=== PATIENT | female | born 1970 | race Caucasian/White ===

== ENCOUNTER 2018-01-28 17:39 | Emergency (ER) | payer BC ==
[2018-01-28] MEDS ORDERED: Ondansetron 4 MG/2 ML SDV IVPUSH ONE (19:23)
[2018-01-28] MEDS ORDERED: Sodium Chloride 0.9% 1,000 ML IV ONE (19:23)
[2018-01-28] MEDS ORDERED: Insulin Regular, Human 100 Units/ML 3 ML Vial SUBCUT STA ×2 (20:07→21:25)
--- NOTE | 2018-01-28 20:09 | EDM.PDOC ---
ED HPI GENERAL MEDICAL PROBLEM - General Chief Complaint: Abdominal Pain Stated Complaint: [facility] Time Seen by Provider: 01/28/18 18:24 Source of Information: Reports: Patient, Family (, 2 kids) History Limitations: Reports: No Limitations - History of Present Illness INITIAL COMMENTS - FREE TEXT/NARRATIVE: The patient states that she developed sudden onset lower abdominal cramping, nausea, and vomiting around 15:00, just after eating a sandwich. No diarrhea. No recent fever. No urinary symptoms. No recent cough. No recent chest pain, palpitations, or dyspnea. No prior similar symptoms. The patient denies eating any spoiled food recently. No similarly ill contacts. No recent travel. No recent antibiotics. The patient states that she started a new job today, and was not able to eat for most of the day. The patient also admits that she has not eaten well over the past several days. The patient states that she has a history of diabetes, however, due to lack of insurance, she has not seen a physician about her diabetes since 2017. She states that she ordinarily checks her blood sugars 3-4 times a day, but it sounds like that has not been the case recently. She states that her blood sugars have been 300-400 ever since June 2017. She states that she ordinarily takes Levemir and metformin for her diabetes, but it also sounds like she has been taking these only if her blood sugars are especially high, in an effort to make them last. The patient does not have a PCP. 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: Neurological History: Reports: Other (See Below) (Nelson palsy 2016) Psychiatric History: Reports: Anxiety Endocrine/Metabolic History: Reports: Diabetes, Type II, Obesity/BMI 30+ - Past Surgical History HEENT Surgical History: Reports: Oral Surgery (Cleft lip repair) GI Surgical History: Reports: Cholecystectomy (1994) Social & Family History - Tobacco Use Smoking Status *Q: Never Smoker - Caffeine Use Caffeine Use: Reports: None - Alcohol Use Alcohol Use History: No - Recreational Drug Use Recreational Drug Use: No - Living Situation & Occupation Living situation: Reports: , with Spouse, with Family (2 kids) Occupation: Employed ([email or web address]) ED ROS GENERAL - Review of Systems Review Of Systems: ROS reveals no pertinent complaints other than HPI. ED EXAM, GI/ABD - Physical Exam Exam: See Below Exam Limited By: No Limitations General Appearance: Alert, WD/WN, No Apparent Distress, Anxious Eyes: Bilateral: Normal Appearance, EOMI Ears: Normal External Exam, Hearing Grossly Normal Nose: Normal Inspection, No Blood Throat/Mouth: Normal Inspection, Normal Lips, Normal Voice, No Airway Compromise Head: Atraumatic, Normocephalic Neck: Normal Inspection, Full Range of Motion Respiratory/Chest: No Respiratory Distress, Lungs Clear, Normal Breath Sounds, No Accessory Muscle Use Cardiovascular: Normal Peripheral Pulses, Regular Rate, Rhythm, No Edema, No Gallop, No JVD, No Murmur, No Rub GI/Abdominal Exam: Normal Bowel Sounds, Soft, No Organomegaly, No Distention, No Abnormal Bruit, No Mass, Tender (Suprapubically only. Nontender elsewhere.), Other (Obese) (Female) Exam: Deferred Rectal (Female) Exam: Deferred Back Exam: Normal Inspection, Full Range of Motion. No: CVA Tenderness (L), CVA Tenderness (R) Extremities: Normal Inspection, Normal Range of Motion, No Pedal Edema, Normal Capillary Refill Neurological: Alert, Oriented, Normal Cognition, No Motor/Sensory Deficits Psychiatric: Normal Affect Skin Exam: Warm, Dry, Intact, Normal Color, No Rash Course - Vital Signs Last Recorded V/S: Last Vital Signs Temp 37.3 C 01/28/18 17:48 Pulse 99 01/28/18 17:48 Resp 16 01/28/18 17:48 BP 130/88 01/28/18 17:48 Pulse Ox 93 L 01/28/18 17:48 Orthostatic Blood Pressure [ 131/88 Standing] Orthostatic Blood Pressure [ 131/83 Sitting] Orthostatic Blood Pressure [ 108/73 Supine] - Orders/Labs/Meds Orders: Active Orders 24 hr Category Date Time Status Accu Check [Blood Glucose Check, Bedside] [RC] ONETIME Care 01/28/18 19:19 Active Accu Check [Blood Glucose Check, Bedside] [RC] ONETIME Care 01/28/18 21:20 Active Blood Glucose Check, Bedside [RC] QIDACANDBED Care 01/29/18 00:10 Active Height and Weight [RC] DAILY Care 01/28/18 23:52 Active Intake and Output [RC] QSHIFT Care 01/28/18 23:52 Active Orthostatic Vital Signs [RC] STAT Care 01/28/18 19:18 Active Oxygen Therapy [RC] PRN Care 01/28/18 23:52 Active RT Aerosol Therapy [RC] ASDIRECTED Care 01/28/18 23:54 Active Up With Assistance [RC] ASDIRECTED Care 01/28/18 23:52 Active Up ad Soumya [RC] ASDIRECTED Care 01/28/18 23:52 Active VTE/DVT Education [RC] PER UNIT ROUTINE Care 01/28/18 23:52 Active Vital Signs [RC] Q4H Care 01/28/18 23:52 Active Consult to Case Management [CONS] Routine Cons 01/28/18 23:52 Active Consult to Diabetic Nurse Specialist [CONS] Routine Cons 01/28/18 23:52 Active Consult to Furniture Inspector [CONS] Routine Cons 01/28/18 23:52 Active Consult to Diesel Pile Hammer Operator [CONS] Routine Cons 01/28/18 23:52 Active Consistent Carbohydrate Diet [DIET] Diet 01/28/18 Dinner Active BASIC METABOLIC PANEL,BMP [CHEM] AM Lab 01/29/18 05:11 Ordered BASIC METABOLIC PANEL,BMP [CHEM] AM Lab 01/30/18 05:11 Ordered C-REACTIVE PROTEIN [CHEM] Stat Lab 01/28/18 19:40 Results CBC WITH AUTO DIFF [HEME] AM Lab 01/29/18 05:11 Ordered CBC WITH AUTO DIFF [HEME] AM Lab 01/30/18 05:11 Ordered LIPID PANEL [CHEM] AM Lab 01/29/18 05:11 Ordered MAGNESIUM [CHEM] AM Lab 01/29/18 05:11 Ordered MAGNESIUM [CHEM] AM Lab 01/30/18 05:11 Ordered MAGNESIUM [CHEM] AM Lab 01/31/18 05:11 Ordered MICROALBUMIN,URINE RANDOM [URCHEM] Stat Lab 01/28/18 21:15 Ordered OSMOLALITY,SERUM [CHEM] Stat Lab 01/28/18 19:40 Results UA W/MICROSCOPIC [URIN] Stat Lab 01/28/18 21:15 Ordered Acetaminophen [Tylenol] Med 01/28/18 23:52 Active 650 mg PO Q4H PRN Acetaminophen/HYDROcodone [[place] 325-5 MG] Med 01/28/18 23:52 Active 1 tab PO Q4H PRN Albuterol/Ipratropium [DuoNeb 3.0-0.5 MG/3 ML] Med 01/28/18 23:52 Active 3 ml NEB Q4H PRN Bisacodyl [Dulcolax] Med 01/28/18 23:52 Active 5 mg PO DAILY PRN Dextrose 50% in Water Med 01/29/18 00:10 Active 50 ml IVPUSH ASDIRECTED PRN Docusate Sodium [Colace] Med 01/28/18 23:52 Active 100 mg PO BID PRN Docusate Sodium/Sennosides [Senna Plus] Med 01/28/18 23:52 Active 1 tab PO BID PRN HYDROmorphone [Dilaudid] Med 01/28/18 23:52 Active 0.25 mg IVPUSH Q2H PRN Insulin Aspart [NovoLOG] Med 01/29/18 07:00 Active See Protocol SUBCUT QIDACANDBED Insulin Detemir [Levemir] Med 01/29/18 09:00 Active 40 unit SUBCUT DAILY LORazepam [Ativan] Med 01/28/18 23:52 Active 1 mg IV Q6H PRN LORazepam [Ativan] Med 01/28/18 23:52 Active 2 mg IVPUSH Q4H PRN Magnesium Hydroxide [Milk of Magnesia] Med 01/28/18 23:52 Active 30 ml PO Q12H PRN Magnesium Rep Pharmacy to Dose [Pharmacy to Dose - Med 01/28/18 23:45 Pending Magnesium Replacement] 1 dose .XX ASDIRECTED Metoprolol Tartrate [Lopressor] Med 01/28/18 23:52 Active 5 mg IVPUSH Q4H PRN Ondansetron [Zofran] Med 01/28/18 23:52 Active 4 mg IV Q4H PRN Polyethylene Glycol 3350 [MiraLAX] Med 01/28/18 23:52 Active 17 gm PO DAILY PRN Potassium Chloride [Klor-Con M20] Med 01/29/18 00:30 Active 40 meq PO Q4H Potassium Rep Pharmacy to Dose [Pharmacy to Dose - Med 01/28/18 23:45 Pending Potassium Replacement] 1 dose .XX ASDIRECTED Promethazine [Phenergan] 12.5 mg Med 01/28/18 23:52 Active Sodium Chloride 0.9% [Normal Saline] 50 ml IV Q6H Remove Patch Med 02/01/18 00:00 Active 1 ea TRDERM Q72H Scopolamine [Transderm-Scop] Med 01/28/18 23:58 Active 1.5 mg TRDERM Q72H PRN Sodium Chloride 0.9% [Normal Saline] 1,000 ml Med 01/28/18 21:30 Active IV ASDIRECTED Temazepam [Restoril] Med 01/28/18 23:52 Active 15 mg PO BEDTIME PRN hydrALAZINE [Apresoline] Med 01/28/18 23:52 Active 20 mg IVPUSH Q4H PRN Resuscitation Status Routine Resus Stat 01/28/18 23:52 Ordered Medication Orders Acetaminophen (Tylenol) 650 mg PO Q4H PRN PRN Reason: Pain (Mild 1-3)/fever Hydrocodone Bitart/Acetaminophen ([place] 325-5 Mg) 1 tab PO Q4H PRN PRN Reason: Pain (moderate 4-6) Albuterol/Ipratropium (Duoneb 3.0-0.5 Mg/3 Ml) 3 ml NEB Q4H PRN PRN Reason: Shortness Of Breath/wheezing Bisacodyl (Dulcolax) 5 mg PO DAILY PRN PRN Reason: Constipation Dextrose/Water (Dextrose 50% In Water) 50 ml IVPUSH ASDIRECTED PRN PRN Reason: Hypoglycemia Docusate Sodium (Colace) 100 mg PO BID PRN PRN Reason: Constipation Hydralazine HCl (Apresoline) 20 mg IVPUSH Q4H PRN PRN Reason: Hypertension Hydromorphone HCl (Dilaudid) 0.25 mg IVPUSH Q2H PRN PRN Reason: Pain (severe 7-10) Sodium Chloride (Normal Saline) 1,000 mls @ 150 mls/hr IV ASDIRECTED [facility] Last Admin: 01/28/18 21:31 Dose: 150 mls/hr Promethazine HCl 12.5 mg/ (Sodium Chloride) 50.5 mls @ 100 mls/hr IV Q6H PRN PRN Reason: Nausea/Vomiting Insulin Aspart (Novolog) 0 unit SUBCUT QIDACANDBED [facility]; Protocol Insulin Detemir (Levemir) 40 unit SUBCUT DAILY [facility] Lorazepam (Ativan) 2 mg IVPUSH Q4H PRN PRN Reason: Seizures Lorazepam (Ativan) 1 mg IV Q6H PRN PRN Reason: Anxiety Magnesium Hydroxide (Milk Of Magnesia) 30 ml PO Q12H PRN PRN Reason: Constipation Magnesium Sulfate (Pharmacy To Dose - Magnesium Replacement) 1 dose .XX ASDIRECTED [facility] Metoprolol Tartrate (Lopressor) 5 mg IVPUSH Q4H PRN PRN Reason: Tachycardia Miscellaneous Information (Remove Patch) 1 ea TRDERM Q72H [facility] Ondansetron HCl (Zofran) 4 mg IV Q4H PRN PRN Reason: Nausea/Vomiting Polyethylene Glycol (Miralax) 17 gm PO DAILY PRN PRN Reason: Constipation Potassium Chloride (Pharmacy To Dose - Potassium Replacement) 1 dose .XX ASDIRECTED [facility] Potassium Chloride (Klor-Con M20) 40 meq PO Q4H [facility] Stop: 01/29/18 04:31 Scopolamine (Transderm-Scop) 1.5 mg TRDERM Q72H PRN PRN Reason: Nausea/Vomiting Senna/Docusate Sodium (Senna Plus) 1 tab PO BID PRN PRN Reason: Constipation Temazepam (Restoril) 15 mg PO BEDTIME PRN PRN Reason: Sleep Labs: Laboratory Tests 01/28/18 01/28/18 01/28/18 Range/Units 19:39 19:40 19:40 WBC 11.61 H (3.98-10.04) K/mm3 RBC 6.09 H (3.98-5.22) M/mm3 Hgb 13.5 (11.2-15.7) gm/L Hct 41.1 (34.1-44.9) % MCV 67.5 L (79.4-94.8) fl MCH 22.2 L (25.6-32.2) pg MCHC 32.8 (32.2-35.5) g/dl RDW Std Deviation 41.8 (36.4-46.3) fL Plt Count 262 (182-369) K/mm3 MPV 10.8 (9.4-12.3) fl Neutrophils % (Manual) 87 H (40-60) % Band Neutrophils % 0 (0-10) % Lymphocytes % (Manual) 12 L (20-40) % Atypical Lymphs % 0 % Monocytes % (Manual) 1 L (2-10) % Eosinophils % (Manual) 0 L (0.7-5.8) % Basophils % (Manual) 0 L (0.1-1.2) Toxic Granulation 2+ moderate Platelet Estimate Adequate Plt Morphology Comment Normal Anisocytosis 2+ moderate Microcytosis 2+ moderate RBC Morph Comment Not Reportable Puncture Site ABG pH (7.35-7.45) ABG pCO2 (35.0-45.0) mmHg ABG pO2 (80.0-100.0) mmHg ABG HCO3 (22.0-26.0) meq/L ABG O2 Saturation (96.0-97.0) % ABG Base Excess (-2-2.0) Fritz Test O2 Delivery Device Oxygen Flow Rate FiO2 (21.00-100.00) % Sodium 138 (136-145) mEq/L Potassium 3.7 (3.5-5.1) mEq/L Chloride 102 (98-107) mEq/L Carbon Dioxide 21 (21-32) mEq/L Anion Gap 18.7 H (5-15) BUN 14 (7-18) mg/dL Creatinine 0.8 (0.55-1.02) mg/dL Est Cr Clr Drug Dosing 79.07 mL/min Estimated GFR (MDRD) > 60 (>60) mL/min BUN/Creatinine Ratio 17.5 (14-18) Glucose 343 H (74-106) mg/dL POC Glucose 297 H (70-105) mg/dL Hemoglobin A1c (4.50-6.20) % Lactic Acid (0.4-2.0) mmol/L Calcium 8.4 L (8.5-10.1) mg/dL Magnesium 1.6 L (1.8-2.4) mg/dl Total Bilirubin 0.6 (0.2-1.0) mg/dL AST 17 (15-37) U/L ALT 33 (14-59) U/L Alkaline Phosphatase 57 (46-116) U/L C-Reactive Protein (<1.0) mg/dL Total Protein 7.3 (6.4-8.2) g/dl Albumin 3.7 (3.4-5.0) g/dl Globulin 3.6 gm/dL Albumin/Globulin Ratio 1.0 (1-2) Lipase 179 (73-393) U/L HCG, Qual (NEGATIVE) Urine Color (Yellow) Urine Appearance (Clear) Urine pH (5.0-8.0) Ur Specific [place] (1.005-1.030) Urine Protein (Negative) Urine Glucose (UA) (Negative) Urine Ketones (Negative) Urine Occult Blood (Negative) Urine Nitrite (Negative) Urine Bilirubin (Negative) Urine Urobilinogen (0.2-1.0) Ur Leukocyte Esterase (Negative) Urine RBC (0-5) /hpf Urine WBC (0-5) /hpf Ur Epithelial Cells (0-5) /hpf Urine Bacteria (FEW) /hpf Urine Mucus (FEW) /hpf Ur Random Microalbumin (1.3-20.0) mg/L Urine HCG, Qual (NEGATIVE) Ketones (0.0-0.3) mM 01/28/18 01/28/18 01/28/18 Range/Units 19:40 19:40 19:40 WBC (3.98-10.04) K/mm3 RBC (3.98-5.22) M/mm3 Hgb (11.2-15.7) gm/L Hct (34.1-44.9) % MCV (79.4-94.8) fl MCH (25.6-32.2) pg MCHC (32.2-35.5) g/dl RDW Std Deviation (36.4-46.3) fL Plt Count (182-369) K/mm3 MPV (9.4-12.3) fl Neutrophils % (Manual) (40-60) % Band Neutrophils % (0-10) % Lymphocytes % (Manual) (20-40) % Atypical Lymphs % % Monocytes % (Manual) (2-10) % Eosinophils % (Manual) (0.7-5.8) % Basophils % (Manual) (0.1-1.2) Toxic Granulation Platelet Estimate Plt Morphology Comment Anisocytosis Microcytosis RBC Morph Comment Puncture Site ABG pH (7.35-7.45) ABG pCO2 (35.0-45.0) mmHg ABG pO2 (80.0-100.0) mmHg ABG HCO3 (22.0-26.0) meq/L ABG O2 Saturation (96.0-97.0) % ABG Base Excess (-2-2.0) Fritz Test O2 Delivery Device Oxygen Flow Rate FiO2 (21.00-100.00) % Sodium (136-145) mEq/L Potassium (3.5-5.1) mEq/L Chloride (98-107) mEq/L Carbon Dioxide (21-32) mEq/L Anion Gap (5-15) BUN (7-18) mg/dL Creatinine (0.55-1.02) mg/dL Est Cr Clr Drug Dosing mL/min Estimated GFR (MDRD) (>60) mL/min BUN/Creatinine Ratio (14-18) Glucose (74-106) mg/dL POC Glucose (70-105) mg/dL Hemoglobin A1c 11.60 H (4.50-6.20) % Lactic Acid 1.3 (0.4-2.0) mmol/L Calcium (8.5-10.1) mg/dL Magnesium (1.8-2.4) mg/dl Total Bilirubin (0.2-1.0) mg/dL AST (15-37) U/L ALT (14-59) U/L Alkaline Phosphatase (46-116) U/L C-Reactive Protein (<1.0) mg/dL Total Protein (6.4-8.2) g/dl Albumin (3.4-5.0) g/dl Globulin gm/dL Albumin/Globulin Ratio (1-2) Lipase (73-393) U/L HCG, Qual (NEGATIVE) Urine Color (Yellow) Urine Appearance (Clear) Urine pH (5.0-8.0) Ur Specific [place] (1.005-1.030) Urine Protein (Negative) Urine Glucose (UA) (Negative) Urine Ketones (Negative) Urine Occult Blood (Negative) Urine Nitrite (Negative) Urine Bilirubin (Negative) Urine Urobilinogen (0.2-1.0) Ur Leukocyte Esterase (Negative) Urine RBC (0-5) /hpf Urine WBC (0-5) /hpf Ur Epithelial Cells (0-5) /hpf Urine Bacteria (FEW) /hpf Urine Mucus (FEW) /hpf Ur Random Microalbumin (1.3-20.0) mg/L Urine HCG, Qual (NEGATIVE) Ketones 4.51 (0.0-0.3) mM 01/28/18 01/28/18 01/28/18 Range/Units 19:40 19:40 20:00 WBC (3.98-10.04) K/mm3 RBC (3.98-5.22) M/mm3 Hgb (11.2-15.7) gm/L Hct (34.1-44.9) % MCV (79.4-94.8) fl MCH (25.6-32.2) pg MCHC (32.2-35.5) g/dl RDW Std Deviation (36.4-46.3) fL Plt Count (182-369) K/mm3 MPV (9.4-12.3) fl Neutrophils % (Manual) (40-60) % Band Neutrophils % (0-10) % Lymphocytes % (Manual) (20-40) % Atypical Lymphs % % Monocytes % (Manual) (2-10) % Eosinophils % (Manual) (0.7-5.8) % Basophils % (Manual) (0.1-1.2) Toxic Granulation Platelet Estimate Plt Morphology Comment Anisocytosis Microcytosis RBC Morph Comment Puncture Site Rt radial ABG pH 7.35 (7.35-7.45) ABG pCO2 35.3 (35.0-45.0) mmHg ABG pO2 94.0 (80.0-100.0) mmHg ABG HCO3 18.8 L (22.0-26.0) meq/L ABG O2 Saturation 96.9 (96.0-97.0) % ABG Base Excess -5.7 L (-2-2.0) Fritz Test Positive O2 Delivery Device Room air Oxygen Flow Rate 0.0 FiO2 21.00 (21.00-100.00) % Sodium (136-145) mEq/L Potassium (3.5-5.1) mEq/L Chloride (98-107) mEq/L Carbon Dioxide (21-32) mEq/L Anion Gap (5-15) BUN (7-18) mg/dL Creatinine (0.55-1.02) mg/dL Est Cr Clr Drug Dosing mL/min Estimated GFR (MDRD) (>60) mL/min BUN/Creatinine Ratio (14-18) Glucose (74-106) mg/dL POC Glucose (70-105) mg/dL Hemoglobin A1c (4.50-6.20) % Lactic Acid (0.4-2.0) mmol/L Calcium (8.5-10.1) mg/dL Magnesium (1.8-2.4) mg/dl Total Bilirubin (0.2-1.0) mg/dL AST (15-37) U/L ALT (14-59) U/L Alkaline Phosphatase (46-116) U/L C-Reactive Protein 0.8 (<1.0) mg/dL Total Protein (6.4-8.2) g/dl Albumin (3.4-5.0) g/dl Globulin gm/dL Albumin/Globulin Ratio (1-2) Lipase (73-393) U/L HCG, Qual Negative (NEGATIVE) Urine Color (Yellow) Urine Appearance (Clear) Urine pH (5.0-8.0) Ur Specific [place] (1.005-1.030) Urine Protein (Negative) Urine Glucose (UA) (Negative) Urine Ketones (Negative) Urine Occult Blood (Negative) Urine Nitrite (Negative) Urine Bilirubin (Negative) Urine Urobilinogen (0.2-1.0) Ur Leukocyte Esterase (Negative) Urine RBC (0-5) /hpf Urine WBC (0-5) /hpf Ur Epithelial Cells (0-5) /hpf Urine Bacteria (FEW) /hpf Urine Mucus (FEW) /hpf Ur Random Microalbumin (1.3-20.0) mg/L Urine HCG, Qual (NEGATIVE) Ketones (0.0-0.3) mM 01/28/18 01/28/18 01/28/18 Range/Units 21:15 21:15 21:15 WBC (3.98-10.04) K/mm3 RBC (3.98-5.22) M/mm3 Hgb (11.2-15.7) gm/L Hct (34.1-44.9) % MCV (79.4-94.8) fl MCH (25.6-32.2) pg MCHC (32.2-35.5) g/dl RDW Std Deviation (36.4-46.3) fL Plt Count (182-369) K/mm3 MPV (9.4-12.3) fl Neutrophils % (Manual) (40-60) % Band Neutrophils % (0-10) % Lymphocytes % (Manual) (20-40) % Atypical Lymphs % % Monocytes % (Manual) (2-10) % Eosinophils % (Manual) (0.7-5.8) % Basophils % (Manual) (0.1-1.2) Toxic Granulation Platelet Estimate Plt Morphology Comment Anisocytosis Microcytosis RBC Morph Comment Puncture Site ABG pH (7.35-7.45) ABG pCO2 (35.0-45.0) mmHg ABG pO2 (80.0-100.0) mmHg ABG HCO3 (22.0-26.0) meq/L ABG O2 Saturation (96.0-97.0) % ABG Base Excess (-2-2.0) Fritz Test O2 Delivery Device Oxygen Flow Rate FiO2 (21.00-100.00) % Sodium (136-145) mEq/L Potassium (3.5-5.1) mEq/L Chloride (98-107) mEq/L Carbon Dioxide (21-32) mEq/L Anion Gap (5-15) BUN (7-18) mg/dL Creatinine (0.55-1.02) mg/dL Est Cr Clr Drug Dosing mL/min Estimated GFR (MDRD) (>60) mL/min BUN/Creatinine Ratio (14-18) Glucose (74-106) mg/dL POC Glucose (70-105) mg/dL Hemoglobin A1c (4.50-6.20) % Lactic Acid (0.4-2.0) mmol/L Calcium (8.5-10.1) mg/dL Magnesium (1.8-2.4) mg/dl Total Bilirubin (0.2-1.0) mg/dL AST (15-37) U/L ALT (14-59) U/L Alkaline Phosphatase (46-116) U/L C-Reactive Protein (<1.0) mg/dL Total Protein (6.4-8.2) g/dl Albumin (3.4-5.0) g/dl Globulin gm/dL Albumin/Globulin Ratio (1-2) Lipase (73-393) U/L HCG, Qual (NEGATIVE) Urine Color Yellow (Yellow) Urine Appearance Clear (Clear) Urine pH 5.5 (5.0-8.0) Ur Specific [place] 1.025 (1.005-1.030) Urine Protein Negative (Negative) Urine Glucose (UA) 2+ H (Negative) Urine Ketones 4+ H (Negative) Urine Occult Blood Negative (Negative) Urine Nitrite Negative (Negative) Urine Bilirubin Negative (Negative) Urine Urobilinogen 0.2 (0.2-1.0) Ur Leukocyte Esterase Negative (Negative) Urine RBC Not seen (0-5) /hpf Urine WBC 0-5 (0-5) /hpf Ur Epithelial Cells Not seen (0-5) /hpf Urine Bacteria Not seen (FEW) /hpf Urine Mucus Not seen (FEW) /hpf Ur Random Microalbumin 11.3 (1.3-20.0) mg/L Urine HCG, Qual Negative (NEGATIVE) Ketones (0.0-0.3) mM 01/28/18 01/28/18 Range/Units 21:19 22:28 WBC (3.98-10.04) K/mm3 RBC (3.98-5.22) M/mm3 Hgb (11.2-15.7) gm/L Hct (34.1-44.9) % MCV (79.4-94.8) fl MCH (25.6-32.2) pg MCHC (32.2-35.5) g/dl RDW Std Deviation (36.4-46.3) fL Plt Count (182-369) K/mm3 MPV (9.4-12.3) fl Neutrophils % (Manual) (40-60) % Band Neutrophils % (0-10) % Lymphocytes % (Manual) (20-40) % Atypical Lymphs % % Monocytes % (Manual) (2-10) % Eosinophils % (Manual) (0.7-5.8) % Basophils % (Manual) (0.1-1.2) Toxic Granulation Platelet Estimate Plt Morphology Comment Anisocytosis Microcytosis RBC Morph Comment Puncture Site ABG pH (7.35-7.45) ABG pCO2 (35.0-45.0) mmHg ABG pO2 (80.0-100.0) mmHg ABG HCO3 (22.0-26.0) meq/L ABG O2 Saturation (96.0-97.0) % ABG Base Excess (-2-2.0) Fritz Test O2 Delivery Device Oxygen Flow Rate FiO2 (21.00-100.00) % Sodium (136-145) mEq/L Potassium (3.5-5.1) mEq/L Chloride (98-107) mEq/L Carbon Dioxide (21-32) mEq/L Anion Gap (5-15) BUN (7-18) mg/dL Creatinine (0.55-1.02) mg/dL Est Cr Clr Drug Dosing mL/min Estimated GFR (MDRD) (>60) mL/min BUN/Creatinine Ratio (14-18) Glucose (74-106) mg/dL POC Glucose 260 H 242 H (70-105) mg/dL Hemoglobin A1c (4.50-6.20) % Lactic Acid (0.4-2.0) mmol/L Calcium (8.5-10.1) mg/dL Magnesium (1.8-2.4) mg/dl Total Bilirubin (0.2-1.0) mg/dL AST (15-37) U/L ALT (14-59) U/L Alkaline Phosphatase (46-116) U/L C-Reactive Protein (<1.0) mg/dL Total Protein (6.4-8.2) g/dl Albumin (3.4-5.0) g/dl Globulin gm/dL Albumin/Globulin Ratio (1-2) Lipase (73-393) U/L HCG, Qual (NEGATIVE) Urine Color (Yellow) Urine Appearance (Clear) Urine pH (5.0-8.0) Ur Specific [place] (1.005-1.030) Urine Protein (Negative) Urine Glucose (UA) (Negative) Urine Ketones (Negative) Urine Occult Blood (Negative) Urine Nitrite (Negative) Urine Bilirubin (Negative) Urine Urobilinogen (0.2-1.0) Ur Leukocyte Esterase (Negative) Urine RBC (0-5) /hpf Urine WBC (0-5) /hpf Ur Epithelial Cells (0-5) /hpf Urine Bacteria (FEW) /hpf Urine Mucus (FEW) /hpf Ur Random Microalbumin (1.3-20.0) mg/L Urine HCG, Qual (NEGATIVE) Ketones (0.0-0.3) mM Meds: Medications Generic Name Dose Route Start Last Admin Trade Name Freq PRN Reason Stop Dose Admin Acetaminophen 650 mg 01/28/18 23:52 Tylenol PO Q4H PRN Pain (Mild 1-3)/fever Hydrocodone Bitart/Acetaminophen 1 tab 01/28/18 23:52 [place] 325-5 Mg PO Q4H PRN Pain (moderate 4-6) Albuterol/Ipratropium 3 ml 01/28/18 23:52 Duoneb 3.0-0.5 Mg/3 Ml NEB Q4H PRN Shortness Of Breath/wheezing Bisacodyl 5 mg 01/28/18 23:52 Dulcolax PO DAILY PRN Constipation Dextrose/Water 50 ml 01/29/18 00:10 Dextrose 50% In Water IVPUSH ASDIRECTED PRN Hypoglycemia Docusate Sodium 100 mg 01/28/18 23:52 Colace PO BID PRN Constipation Hydralazine HCl 20 mg 01/28/18 23:52 Apresoline IVPUSH Q4H PRN Hypertension Hydromorphone HCl 0.25 mg 01/28/18 23:52 Dilaudid IVPUSH Q2H PRN Pain (severe 7-10) Sodium Chloride 1,000 mls @ 150 mls/hr 01/28/18 21:30 01/28/18 21:31 Normal Saline IV 150 mls/hr ASDIRECTED [facility] Administration Promethazine HCl 12.5 mg/ 50.5 mls @ 100 mls/hr 01/28/18 23:52 Sodium Chloride IV Q6H PRN Nausea/Vomiting Insulin Aspart 0 unit 01/29/18 07:00 Novolog SUBCUT QIDACANDBED [facility] Protocol Insulin Detemir 40 unit 01/29/18 09:00 Levemir SUBCUT DAILY [facility] Lorazepam 2 mg 01/28/18 23:52 Ativan IVPUSH Q4H PRN Seizures Lorazepam 1 mg 01/28/18 23:52 Ativan IV Q6H PRN Anxiety Magnesium Hydroxide 30 ml 01/28/18 23:52 Milk Of Magnesia PO Q12H PRN Constipation Magnesium Sulfate 1 dose 01/28/18 23:45 Pharmacy To Dose - Magnesium Replacement .XX ASDIRECTED [facility] Metoprolol Tartrate 5 mg 01/28/18 23:52 Lopressor IVPUSH Q4H PRN Tachycardia Miscellaneous Information 1 ea 02/01/18 00:00 Remove Patch TRDERM Q72H MARKIE Ondansetron HCl 4 mg 01/28/18 23:52 Zofran IV Q4H PRN Nausea/Vomiting Polyethylene Glycol 17 gm 01/28/18 23:52 Miralax PO DAILY PRN Constipation Potassium Chloride 1 dose 01/28/18 23:45 Pharmacy To Dose - Potassium Replacement .XX ASDIRECTED MARKIE Potassium Chloride 40 meq 01/29/18 00:30 Klor-Con M20 PO 01/29/18 04:31 Q4H MARKIE Scopolamine 1.5 mg 01/28/18 23:58 Transderm-Scop TRDERM Q72H PRN Nausea/Vomiting Senna/Docusate Sodium 1 tab 01/28/18 23:52 Senna Plus PO BID PRN Constipation Temazepam 15 mg 01/28/18 23:52 Restoril PO BEDTIME PRN Sleep Discontinued Medications Generic Name Dose Route Start Last Admin Trade Name Freq PRN Reason Stop Dose Admin Sodium Chloride 1,000 mls @ 999 mls/hr 01/28/18 19:23 01/28/18 19:37 Normal Saline IV 01/28/18 20:23 999 mls/hr ONETIME ONE Administration Insulin Human Regular 6 unit 01/28/18 20:07 01/28/18 20:25 Humulin R SUBCUT 01/28/18 20:08 6 units ONETIME STA Administration Insulin Human Regular 3 unit 01/28/18 21:25 01/28/18 21:31 Humulin R SUBCUT 01/28/18 21:26 3 units ONETIME STA Administration Magnesium Oxide 400 mg 01/29/18 00:15 Magnesium Oxide PO 01/29/18 00:16 ONETIME ONE Ondansetron HCl 4 mg 01/28/18 19:23 01/28/18 19:37 Zofran IVPUSH 01/28/18 19:24 4 mg ONETIME ONE Administration - Re-Assessments/Exams Free Text/Narrative Re-Assessment/Exam: 01/28/18 20:06 The patient is not orthostatic. 01/28/18 20:09 The patient's Accu-Chek is elevated at 297. I have ordered 6 units regular insulin, to be followed by a repeat Accu-Chek in about an hour. 01/28/18 23:24 The blood glucose, about one hour after receiving 6 units Regular insulin, was down to 260. She received 3 units regular insulin, and about an hour later, her blood glucose was down to 243. The patient's urinalysis shows 4+ ketones, and her serum ketones are elevated at 4.51. Her bicarbonate on her chemistry panel is 21 with an anion gap of 18.7 , but her bicarbonate is 18.8 on her blood gas. It appears that the patient is suffering from very mild DKA. I recommended that the patient be admitted for IV fluid and close monitoring of her blood glucose, with possible additional insulin. The patient has agreed. 01/28/18 23:[address] Edwards in the ED at 23:44. He has accepted the patient for observation. 01/29/18 00:44 Notified that the patient has changed her mind, and would like to go home. Unfortunately, I will have to have her sign AMA. Departure - Departure Time of Disposition: 00:45 Disposition: Against Medical Advice 07 Condition: Fair Clinical Impression: DKA (diabetic ketoacidoses), Hyperglycemia due to type 2 diabetes mellitus - Discharge Information *PRESCRIPTION DRUG MONITORING PROGRAM REVIEWED*: Not Applicable *COPY OF PRESCRIPTION DRUG MONITORING REPORT IN PATIENT WILFREDO: Not Applicable Referrals: PCP,Not In Area [Primary Care Provider] - Jyotsna Marrufo MD [Physician] - Additional Instructions: Review were seen in the emergency room for sudden onset lower abdominal pain, nausea, and vomiting. Workup in the ER included blood work, an arterial blood gas, a urinalysis, and positional blood pressure checked. Your workup found that you are in mild diabetic ketoacidosis, a condition caused by high blood sugar with inadequate insulin. Admission to the hospital was recommended for treatment with IV fluid and monitoring of your blood sugars, however, you have elected to leave AGAINST MEDICAL ADVICE. We recommend that he stay well hydrated, monitor your blood sugars closely, and treat your high blood sugar with an appropriate dose of insulin. Follow-up with Dr. Jyotsna Marrufo first thing in the morning. If you change your mind about being admitted, please do not hesitate to return to the ER. - My Orders Last 24 Hours: My Active Orders 01/28/18 19:18 Orthostatic Vital Signs [RC] STAT 01/28/18 19:19 Accu Check [Blood Glucose Check, Bedside] [RC] ONETIME 01/28/18 21:15 UA W/MICROSCOPIC [URIN] Stat 01/28/18 21:20 Accu Check [Blood Glucose Check, Bedside] [RC] ONETIME 01/28/18 21:30 Sodium Chloride 0.9% [Normal Saline] 1,000 ml IV ASDIRECTED - Assessment/Plan Last 24 Hours: My Active Orders 01/28/18 19:18 Orthostatic Vital Signs [RC] STAT 01/28/18 19:19 Accu Check [Blood Glucose Check, Bedside] [RC] ONETIME 01/28/18 21:15 UA W/MICROSCOPIC [URIN] Stat 01/28/18 21:20 Accu Check [Blood Glucose Check, Bedside] [RC] ONETIME 01/28/18 21:30 Sodium Chloride 0.9% [Normal Saline] 1,000 ml IV ASDIRECTED
[2018-01-28] MEDS ORDERED: Sodium Chloride 0.9% 1,000 ML IV SCH (21:30)
[2018-01-28] MEDS ORDERED: Bisacodyl 5 MG Tab PO PRN (23:52)
[2018-01-28] MEDS ORDERED: Docusate Sodium 100 MG Cap PO PRN (23:52)
[2018-01-28] MEDS ORDERED: Temazepam 15 MG Cap PO PRN (23:52)
[2018-01-28] MEDS ORDERED: LORazepam 2 MG/ML SDV IV PRN (23:52)
[2018-01-28] MEDS ORDERED: Metoprolol Tartrate 5 MG/5 ML SDV IVPUSH PRN (23:52)
[2018-01-28] MEDS ORDERED: Albuterol/Ipratropium 3.0-0.5 MG/3 ML Neb Soln NEB PRN (23:52)
[2018-01-28] MEDS ORDERED: Acetaminophen 325 MG Tab PO PRN (23:52)
[2018-01-28] MEDS ORDERED: hydrALAZINE 20 MG/ML SDV IVPUSH PRN (23:52)
[2018-01-28] MEDS ORDERED: Ondansetron 4 MG/2 ML SDV IV PRN (23:52)
[2018-01-28] MEDS ORDERED: HYDROmorphone 0.5 MG/0.5 ML SYRINGE IVPUSH PRN (23:52)
[2018-01-28] MEDS ORDERED: Magnesium Hydroxide 400 MG/5 ML Susp 30 ML Cup PO PRN (23:52)
[2018-01-28] MEDS ORDERED: Polyethylene Glycol 3350 Powder 17 GM Packet PO PRN (23:52)
[2018-01-28] MEDS ORDERED: Promethazine 12.5 MG in Sodium Chloride 0.9% 50 ML IV PRN (23:52)
[2018-01-28] MEDS ORDERED: LORazepam 2 MG/ML SDV IVPUSH PRN (23:52)
[2018-01-28] MEDS ORDERED: Acetaminophen/HYDROcodone 325-5 MG Tab PO PRN (23:52)
[2018-01-28] MEDS ORDERED: Scopolamine 1.5 MG Transdermal Patch TRDERM PRN (23:58)
--- NOTE | 2018-01-28 23:58 | PCM.HP ---
H&P History of Present Illness - General Date of Service: 01/28/18 Admit Problem/Dx: Hyperglycemic Hyperosmolar State Source of Information: Patient, Family, Provider, RN Notes Reviewed History Limitations: Reports: No Limitations Lower Abdomen Pain Score (Numeric/FACES): 4 - Related Data Allergies/Adverse Reactions: Allergies Allergy/AdvReac Type Severity Reaction Status Date / Time milk Allergy Abdominal Verified 01/28/18 19:51 Cramps Home Medications: Home Meds Insulin Detemir [Levemir Flextouch] 40 unit SQ DAILY 01/28/18 [History] metFORMIN [Glucophage] 1,000 mg PO BIDMEALS 01/28/18 [History] Past Medical History Gastrointestinal History: Reports: Cholelithiasis Genitourinary History: Reports: Renal Calculus, Urinary Incontinence (stress incontience) BRAINER History: Reports: Neurological History: Reports: Other (See Below) (Nelson palsy 2016) Psychiatric History: Reports: Anxiety Endocrine/Metabolic History: Reports: Diabetes, Type II, Obesity/BMI 30+ - Past Surgical History HEENT Surgical History: Reports: Oral Surgery (Cleft lip repair) GI Surgical History: Reports: Cholecystectomy (1994) Social & Family History - Tobacco Use Smoking Status *Q: Never Smoker - Caffeine Use Caffeine Use: Reports: None - Recreational Drug Use Recreational Drug Use: No - Living Situation & Occupation Living situation: Reports: , with Spouse, with Family (2 kids) Occupation: Employed ([employer]) H&P Review of Systems - Review of Systems: Review Of Systems: See Below Exam - Exam Exam: See Below - Vital Signs Vital Signs: Last Vital Signs Temp 37.3 C 01/28/18 17:48 Pulse 99 01/28/18 17:48 Resp 16 01/28/18 17:48 BP 130/88 01/28/18 17:48 Pulse Ox 93 L 01/28/18 17:48 Orthostatic Blood Pressure [ 131/88 Standing] Orthostatic Blood Pressure [ 131/83 Sitting] Orthostatic Blood Pressure [ 108/73 Supine] Weight: 90.718 kg - Patient Data Lab Results Last 24 hrs: Laboratory Results - last 24 hr 01/28/18 01/28/18 01/28/18 Range/Units 19:39 19:40 19:40 WBC 11.61 H (3.98-10.04) K/mm3 RBC 6.09 H (3.98-5.22) M/mm3 Hgb 13.5 (11.2-15.7) gm/L Hct 41.1 (34.1-44.9) % MCV 67.5 L (79.4-94.8) fl MCH 22.2 L (25.6-32.2) pg MCHC 32.8 (32.2-35.5) g/dl RDW Std Deviation 41.8 (36.4-46.3) fL Plt Count 262 (182-369) K/mm3 MPV 10.8 (9.4-12.3) fl Neutrophils % (Manual) 87 H (40-60) % Band Neutrophils % 0 (0-10) % Lymphocytes % (Manual) 12 L (20-40) % Atypical Lymphs % 0 % Monocytes % (Manual) 1 L (2-10) % Eosinophils % (Manual) 0 L (0.7-5.8) % Basophils % (Manual) 0 L (0.1-1.2) Toxic Granulation 2+ moderate Platelet Estimate Adequate Plt Morphology Comment Normal Anisocytosis 2+ moderate Microcytosis 2+ moderate RBC Morph Comment Not Reportable Puncture Site ABG pH (7.35-7.45) ABG pCO2 (35.0-45.0) mmHg ABG pO2 (80.0-100.0) mmHg ABG HCO3 (22.0-26.0) meq/L ABG O2 Saturation (96.0-97.0) % ABG Base Excess (-2-2.0) Fritz Test O2 Delivery Device Oxygen Flow Rate FiO2 (21.00-100.00) % Sodium 138 (136-145) mEq/L Potassium 3.7 (3.5-5.1) mEq/L Chloride 102 (98-107) mEq/L Carbon Dioxide 21 (21-32) mEq/L Anion Gap 18.7 H (5-15) BUN 14 (7-18) mg/dL Creatinine 0.8 (0.55-1.02) mg/dL Est Cr Clr Drug Dosing 79.07 mL/min Estimated GFR (MDRD) > 60 (>60) mL/min BUN/Creatinine Ratio 17.5 (14-18) Glucose 343 H (74-106) mg/dL POC Glucose 297 H (70-105) mg/dL Lactic Acid (0.4-2.0) mmol/L Calcium 8.4 L (8.5-10.1) mg/dL Magnesium 1.6 L (1.8-2.4) mg/dl Total Bilirubin 0.6 (0.2-1.0) mg/dL AST 17 (15-37) U/L ALT 33 (14-59) U/L Alkaline Phosphatase 57 (46-116) U/L Total Protein 7.3 (6.4-8.2) g/dl Albumin 3.7 (3.4-5.0) g/dl Globulin 3.6 gm/dL Albumin/Globulin Ratio 1.0 (1-2) Lipase 179 (73-393) U/L Urine Color (Yellow) Urine Appearance (Clear) Urine pH (5.0-8.0) Ur Specific [place] (1.005-1.030) Urine Protein (Negative) Urine Glucose (UA) (Negative) Urine Ketones (Negative) Urine Occult Blood (Negative) Urine Nitrite (Negative) Urine Bilirubin (Negative) Urine Urobilinogen (0.2-1.0) Ur Leukocyte Esterase (Negative) Urine RBC (0-5) /hpf Urine WBC (0-5) /hpf Ur Epithelial Cells (0-5) /hpf Urine Bacteria (FEW) /hpf Urine Mucus (FEW) /hpf Urine HCG, Qual (NEGATIVE) Ketones (0.0-0.3) mM 01/28/18 01/28/18 01/28/18 Range/Units 19:40 19:40 20:00 WBC (3.98-10.04) K/mm3 RBC (3.98-5.22) M/mm3 Hgb (11.2-15.7) gm/L Hct (34.1-44.9) % MCV (79.4-94.8) fl MCH (25.6-32.2) pg MCHC (32.2-35.5) g/dl RDW Std Deviation (36.4-46.3) fL Plt Count (182-369) K/mm3 MPV (9.4-12.3) fl Neutrophils % (Manual) (40-60) % Band Neutrophils % (0-10) % Lymphocytes % (Manual) (20-40) % Atypical Lymphs % % Monocytes % (Manual) (2-10) % Eosinophils % (Manual) (0.7-5.8) % Basophils % (Manual) (0.1-1.2) Toxic Granulation Platelet Estimate Plt Morphology Comment Anisocytosis Microcytosis RBC Morph Comment Puncture Site Rt radial ABG pH 7.35 (7.35-7.45) ABG pCO2 35.3 (35.0-45.0) mmHg ABG pO2 94.0 (80.0-100.0) mmHg ABG HCO3 18.8 L (22.0-26.0) meq/L ABG O2 Saturation 96.9 (96.0-97.0) % ABG Base Excess -5.7 L (-2-2.0) Fritz Test Positive O2 Delivery Device Room air Oxygen Flow Rate 0.0 FiO2 21.00 (21.00-100.00) % Sodium (136-145) mEq/L Potassium (3.5-5.1) mEq/L Chloride (98-107) mEq/L Carbon Dioxide (21-32) mEq/L Anion Gap (5-15) BUN (7-18) mg/dL Creatinine (0.55-1.02) mg/dL Est Cr Clr Drug Dosing mL/min Estimated GFR (MDRD) (>60) mL/min BUN/Creatinine Ratio (14-18) Glucose (74-106) mg/dL POC Glucose (70-105) mg/dL Lactic Acid 1.3 (0.4-2.0) mmol/L Calcium (8.5-10.1) mg/dL Magnesium (1.8-2.4) mg/dl Total Bilirubin (0.2-1.0) mg/dL AST (15-37) U/L ALT (14-59) U/L Alkaline Phosphatase (46-116) U/L Total Protein (6.4-8.2) g/dl Albumin (3.4-5.0) g/dl Globulin gm/dL Albumin/Globulin Ratio (1-2) Lipase (73-393) U/L Urine Color (Yellow) Urine Appearance (Clear) Urine pH (5.0-8.0) Ur Specific [place] (1.005-1.030) Urine Protein (Negative) Urine Glucose (UA) (Negative) Urine Ketones (Negative) Urine Occult Blood (Negative) Urine Nitrite (Negative) Urine Bilirubin (Negative) Urine Urobilinogen (0.2-1.0) Ur Leukocyte Esterase (Negative) Urine RBC (0-5) /hpf Urine WBC (0-5) /hpf Ur Epithelial Cells (0-5) /hpf Urine Bacteria (FEW) /hpf Urine Mucus (FEW) /hpf Urine HCG, Qual (NEGATIVE) Ketones 4.51 (0.0-0.3) mM 01/28/18 01/28/18 01/28/18 Range/Units 21:15 21:15 21:19 WBC (3.98-10.04) K/mm3 RBC (3.98-5.22) M/mm3 Hgb (11.2-15.7) gm/L Hct (34.1-44.9) % MCV (79.4-94.8) fl MCH (25.6-32.2) pg MCHC (32.2-35.5) g/dl RDW Std Deviation (36.4-46.3) fL Plt Count (182-369) K/mm3 MPV (9.4-12.3) fl Neutrophils % (Manual) (40-60) % Band Neutrophils % (0-10) % Lymphocytes % (Manual) (20-40) % Atypical Lymphs % % Monocytes % (Manual) (2-10) % Eosinophils % (Manual) (0.7-5.8) % Basophils % (Manual) (0.1-1.2) Toxic Granulation Platelet Estimate Plt Morphology Comment Anisocytosis Microcytosis RBC Morph Comment Puncture Site ABG pH (7.35-7.45) ABG pCO2 (35.0-45.0) mmHg ABG pO2 (80.0-100.0) mmHg ABG HCO3 (22.0-26.0) meq/L ABG O2 Saturation (96.0-97.0) % ABG Base Excess (-2-2.0) Fritz Test O2 Delivery Device Oxygen Flow Rate FiO2 (21.00-100.00) % Sodium (136-145) mEq/L Potassium (3.5-5.1) mEq/L Chloride (98-107) mEq/L Carbon Dioxide (21-32) mEq/L Anion Gap (5-15) BUN (7-18) mg/dL Creatinine (0.55-1.02) mg/dL Est Cr Clr Drug Dosing mL/min Estimated GFR (MDRD) (>60) mL/min BUN/Creatinine Ratio (14-18) Glucose (74-106) mg/dL POC Glucose 260 H (70-105) mg/dL Lactic Acid (0.4-2.0) mmol/L Calcium (8.5-10.1) mg/dL Magnesium (1.8-2.4) mg/dl Total Bilirubin (0.2-1.0) mg/dL AST (15-37) U/L ALT (14-59) U/L Alkaline Phosphatase (46-116) U/L Total Protein (6.4-8.2) g/dl Albumin (3.4-5.0) g/dl Globulin gm/dL Albumin/Globulin Ratio (1-2) Lipase (73-393) U/L Urine Color Yellow (Yellow) Urine Appearance Clear (Clear) Urine pH 5.5 (5.0-8.0) Ur Specific [place] 1.025 (1.005-1.030) Urine Protein Negative (Negative) Urine Glucose (UA) 2+ H (Negative) Urine Ketones 4+ H (Negative) Urine Occult Blood Negative (Negative) Urine Nitrite Negative (Negative) Urine Bilirubin Negative (Negative) Urine Urobilinogen 0.2 (0.2-1.0) Ur Leukocyte Esterase Negative (Negative) Urine RBC Not seen (0-5) /hpf Urine WBC 0-5 (0-5) /hpf Ur Epithelial Cells Not seen (0-5) /hpf Urine Bacteria Not seen (FEW) /hpf Urine Mucus Not seen (FEW) /hpf Urine HCG, Qual Negative (NEGATIVE) Ketones (0.0-0.3) mM 18 Range/Units 22:28 WBC (3.98-10.04) K/mm3 RBC (3.98-5.22) M/mm3 Hgb (11.2-15.7) gm/L Hct (34.1-44.9) % MCV (79.4-94.8) fl MCH (25.6-32.2) pg MCHC (32.2-35.5) g/dl RDW Std Deviation (36.4-46.3) fL Plt Count (182-369) K/mm3 MPV (9.4-12.3) fl Neutrophils % (Manual) (40-60) % Band Neutrophils % (0-10) % Lymphocytes % (Manual) (20-40) % Atypical Lymphs % % Monocytes % (Manual) (2-10) % Eosinophils % (Manual) (0.7-5.8) % Basophils % (Manual) (0.1-1.2) Toxic Granulation Platelet Estimate Plt Morphology Comment Anisocytosis Microcytosis RBC Morph Comment Puncture Site ABG pH (7.35-7.45) ABG pCO2 (35.0-45.0) mmHg ABG pO2 (80.0-100.0) mmHg ABG HCO3 (22.0-26.0) meq/L ABG O2 Saturation (96.0-97.0) % ABG Base Excess (-2-2.0) Fritz Test O2 Delivery Device Oxygen Flow Rate FiO2 (21.00-100.00) % Sodium (136-145) mEq/L Potassium (3.5-5.1) mEq/L Chloride (98-107) mEq/L Carbon Dioxide (21-32) mEq/L Anion Gap (5-15) BUN (7-18) mg/dL Creatinine (0.55-1.02) mg/dL Est Cr Clr Drug Dosing mL/min Estimated GFR (MDRD) (>60) mL/min BUN/Creatinine Ratio (14-18) Glucose (74-106) mg/dL POC Glucose 242 H (70-105) mg/dL Lactic Acid (0.4-2.0) mmol/L Calcium (8.5-10.1) mg/dL Magnesium (1.8-2.4) mg/dl Total Bilirubin (0.2-1.0) mg/dL AST (15-37) U/L ALT (14-59) U/L Alkaline Phosphatase (46-116) U/L Total Protein (6.4-8.2) g/dl Albumin (3.4-5.0) g/dl Globulin gm/dL Albumin/Globulin Ratio (1-2) Lipase (73-393) U/L Urine Color (Yellow) Urine Appearance (Clear) Urine pH (5.0-8.0) Ur Specific [place] (1.005-1.030) Urine Protein (Negative) Urine Glucose (UA) (Negative) Urine Ketones (Negative) Urine Occult Blood (Negative) Urine Nitrite (Negative) Urine Bilirubin (Negative) Urine Urobilinogen (0.2-1.0) Ur Leukocyte Esterase (Negative) Urine RBC (0-5) /hpf Urine WBC (0-5) /hpf Ur Epithelial Cells (0-5) /hpf Urine Bacteria (FEW) /hpf Urine Mucus (FEW) /hpf Urine HCG, Qual (NEGATIVE) Ketones (0.0-0.3) mM Result Diagrams: 01/28/18 19:40 01/28/18 19:40 Problem List Initiated/Reviewed/Updated: Yes Orders Last 24hrs: Active Orders 24 hr Category Date Time Status Accu Check [Blood Glucose Check, Bedside] [RC] ONETIME Care 01/28/18 19:19 Active Accu Check [Blood Glucose Check, Bedside] [RC] ONETIME Care 01/28/18 21:20 Active Height and Weight [RC] DAILY Care 01/28/18 23:52 Ordered Intake and Output [RC] QSHIFT Care 01/28/18 23:52 Ordered Orthostatic Vital Signs [RC] STAT Care 01/28/18 19:18 Active Oxygen Therapy [RC] PRN Care 01/28/18 23:52 Ordered RT Aerosol Therapy [RC] ASDIRECTED Care 01/28/18 23:54 Ordered Up With Assistance [RC] ASDIRECTED Care 01/28/18 23:52 Ordered Up ad Soumya [RC] ASDIRECTED Care 01/28/18 23:52 Ordered VTE/DVT Education [RC] PER UNIT ROUTINE Care 01/28/18 23:52 Ordered Vital Signs [RC] Q4H Care 01/28/18 23:52 Ordered Consult to Case Management [CONS] Routine Cons 01/28/18 23:52 Ordered Consult to Diabetic Nurse Specialist [CONS] Routine Cons 01/28/18 23:52 Ordered Consult to Lamp Decorator [CONS] Routine Cons 01/28/18 23:52 Ordered Consult to Powdered Sugar Supervisor [CONS] Routine Cons 01/28/18 23:52 Ordered Consistent Carbohydrate Diet [DIET] Diet 01/28/18 Dinner Ordered A1C [GLYCOSYLATED HEMOGLOBIN,HGBA1C] [CHEM] Stat Lab 01/28/18 23:51 Ordered BASIC METABOLIC PANEL,BMP [CHEM] AM Lab 01/29/18 05:11 Ordered BASIC METABOLIC PANEL,BMP [CHEM] AM Lab 01/30/18 05:11 Ordered C-REACTIVE PROTEIN [CHEM] Stat Lab 01/28/18 23:52 Ordered CBC WITH AUTO DIFF [HEME] AM Lab 01/29/18 05:11 Ordered CBC WITH AUTO DIFF [HEME] AM Lab 01/30/18 05:11 Ordered HCG QUALITATIVE,SERUM [CHEM] Stat Lab 01/28/18 23:52 Ordered LIPID PANEL [CHEM] AM Lab 01/29/18 05:11 Ordered MAGNESIUM [CHEM] AM Lab 01/29/18 05:11 Ordered MAGNESIUM [CHEM] AM Lab 01/30/18 05:11 Ordered MAGNESIUM [CHEM] AM Lab 01/31/18 05:11 Ordered MICROALBUMIN,URINE RANDOM [URCHEM] Stat Lab 01/28/18 23:56 Ordered UA W/MICROSCOPIC [URIN] Stat Lab 01/28/18 21:15 Ordered Acetaminophen [Tylenol] Med 01/28/18 23:52 Ordered 650 mg PO Q4H PRN Acetaminophen/HYDROcodone [[place] 325-5 MG] Med 01/28/18 23:52 Ordered 1 tab PO Q4H PRN Albuterol/Ipratropium [DuoNeb 3.0-0.5 MG/3 ML] Med 01/28/18 23:52 Ordered 3 ml NEB Q4H PRN Bisacodyl [Dulcolax] Med 01/28/18 23:52 Ordered 5 mg PO DAILY PRN Docusate Sodium [Colace] Med 01/28/18 23:52 Ordered 100 mg PO BID PRN Docusate Sodium/Sennosides [Senna Plus] Med 01/28/18 23:52 Ordered 1 tab PO BID PRN HYDROmorphone [Dilaudid] Med 01/28/18 23:52 Ordered 0.25 mg IVPUSH Q2H PRN Insulin Detemir [Levemir] Med 01/29/18 09:00 Ordered 40 unit SUBCUT DAILY LORazepam [Ativan] Med 01/28/18 23:52 Ordered 1 mg IV Q6H PRN LORazepam [Ativan] Med 01/28/18 23:52 Ordered 2 mg IVPUSH Q4H PRN Magnesium Hydroxide [Milk of Magnesia] Med 01/28/18 23:52 Ordered 30 ml PO Q12H PRN Magnesium Rep Pharmacy to Dose [Pharmacy to Dose - Med 01/28/18 23:45 Ordered Magnesium Replacement] 1 dose .XX ASDIRECTED Metoprolol Tartrate [Lopressor] Med 01/28/18 23:52 Ordered 5 mg IVPUSH Q4H PRN Ondansetron [Zofran] Med 01/28/18 23:52 Ordered 4 mg IV Q4H PRN Polyethylene Glycol 3350 [MiraLAX] Med 01/28/18 23:52 Ordered 17 gm PO DAILY PRN Potassium Rep Pharmacy to Dose [Pharmacy to Dose - Med 01/28/18 23:45 Ordered Potassium Replacement] 1 dose .XX ASDIRECTED Promethazine [Phenergan] 12.5 mg Med 01/28/18 23:52 Ordered Sodium Chloride 0.9% [Normal Saline] 50 ml IV Q6H Sodium Chloride 0.9% [Normal Saline] 1,000 ml Med 01/28/18 21:30 Active IV ASDIRECTED Temazepam [Restoril] Med 01/28/18 23:52 Ordered 15 mg PO BEDTIME PRN hydrALAZINE [Apresoline] Med 01/28/18 23:52 Ordered 20 mg IVPUSH Q4H PRN Resuscitation Status Routine Resus Stat 01/28/18 23:52 Ordered Medication Orders Acetaminophen (Tylenol) 650 mg PO Q4H PRN PRN Reason: Pain (Mild 1-3)/fever Hydrocodone Bitart/Acetaminophen ([place] 325-5 Mg) 1 tab PO Q4H PRN PRN Reason: Pain (moderate 4-6) Albuterol/Ipratropium (Duoneb 3.0-0.5 Mg/3 Ml) 3 ml NEB Q4H PRN PRN Reason: Shortness Of Breath/wheezing Bisacodyl (Dulcolax) 5 mg PO DAILY PRN PRN Reason: Constipation Docusate Sodium (Colace) 100 mg PO BID PRN PRN Reason: Constipation Hydralazine HCl (Apresoline) 20 mg IVPUSH Q4H PRN PRN Reason: Hypertension Hydromorphone HCl (Dilaudid) 0.25 mg IVPUSH Q2H PRN PRN Reason: Pain (severe 7-10) Sodium Chloride (Normal Saline) 1,000 mls @ 150 mls/hr IV ASDIRECTED MARKIE Last Admin: 01/28/18 21:31 Dose: 150 mls/hr Promethazine HCl 12.5 mg/ (Sodium Chloride) 50.5 mls @ 100 mls/hr IV Q6H PRN PRN Reason: Nausea/Vomiting Insulin Detemir (Levemir) 40 unit SUBCUT DAILY [facility] Lorazepam (Ativan) 2 mg IVPUSH Q4H PRN PRN Reason: Seizures Lorazepam (Ativan) 1 mg IV Q6H PRN PRN Reason: Anxiety Magnesium Hydroxide (Milk Of Magnesia) 30 ml PO Q12H PRN PRN Reason: Constipation Magnesium Sulfate (Pharmacy To Dose - Magnesium Replacement) 1 dose .XX ASDIRECTED [facility] Metoprolol Tartrate (Lopressor) 5 mg IVPUSH Q4H PRN PRN Reason: Tachycardia Ondansetron HCl (Zofran) 4 mg IV Q4H PRN PRN Reason: Nausea/Vomiting Polyethylene Glycol (Miralax) 17 gm PO DAILY PRN PRN Reason: Constipation Potassium Chloride (Pharmacy To Dose - Potassium Replacement) 1 dose .XX ASDIRECTED [facility] Senna/Docusate Sodium (Senna Plus) 1 tab PO BID PRN PRN Reason: Constipation Temazepam (Restoril) 15 mg PO BEDTIME PRN PRN Reason: Sleep
[2018-01-29] MEDS ORDERED: 50% Dextrose in Water 50 ML Syringe IVPUSH PRN (00:10)
[2018-01-29] MEDS ORDERED: Magnesium Oxide 400 MG Tab PO ONE (00:15)
[2018-01-29] MEDS ORDERED: Potassium Chloride 20 MEQ Tab.ER PO SCH (00:30)
[2018-01-29] MEDS ORDERED: Insulin Aspart 100 Units/ML 3 ML Pen SUBCUT SCH (07:00)
[2018-01-29] MEDS ORDERED: Insulin Detemir 100 Units/ML 3 ML Pen SUBCUT SCH (09:00)
== END 2018-01-29 00:58 | disposition left against medical advice (07) ==
LOC: JD.ED 17:39
DX: E11.10 Type 2 diabetes mellitus with ketoacidosis without coma (principal); E11.65 Type 2 diabetes mellitus with hyperglycemia; Z91.011 Allergy to milk products; Z79.4 Long term (current) use of insulin; Z53.20 Procedure and treatment not carried out because of patient's decision for unspecified reasons
CPT/HCPCS: 36415; 36600; 80053; 81001; 81025; 82009; 82044; 82803; 82962; 83036; 83605; 83690; 83735; 83930; 84703; 85007; 85027; 86140; 96361; 96372; 96374; 99284; J1815; J2405; J7040; 99285